=== PATIENT | female | born 1975 | race Caucasian/White ===

== ENCOUNTER 2024-01-28 15:05 | Emergency (ER) | payer SELFPAY ==
[2024-01-28] VITALS (32 sets, daily range): BP systolic 97–140; BP diastolic 54–85; PULSE 105–120; RESP 17–27; TEMP 35–37; O2SAT 94–100; BMI 23.4
--- NOTE | 2024-01-28 15:08 | ECG_ITS ---
APPROVED REPORT Exam: Resting ECG HR:102 bpm ECG Measurements Heart Rate 102 AXES SD 145 P 47 QRSd 82 QRS 60 QT 369 T 42 QTc 428 Conclusion Sinus tachycardia Septal Q waves, likely old ischemia Electronically signed by : MICHAEL CALZADA, 01/28/2024 21:17:35
[2024-01-28] MEDS: ETOMIDATE 40MG/20ML VIAL 20 MG IV (15:13)
[2024-01-28] MEDS: ROCURONIUM BROMIDE 50MG/5ML VIAL 60 MG IV (15:14)
--- NOTE | 2024-01-28 15:16 | PC.NURSE ---
ER MD placed 7.5 ET tube via glidescope, 19 at the teeth, positive co2 color change, auscultated breath sounds and post placement xray see ER MD and RT notes for further info, see MAR for meds given and sedation
--- NOTE | 2024-01-28 15:19 | CT_ITS ---
FINAL REPORT TECHNIQUE: Thin-section axial CT with IV contrast supplemented with multi planar reconstruction under CT angiogram protocol was performed of the neck. This study was performed technique to keep radiation doses as low as reasonably achievable, (ALARA). NASCET criteria was utilized during interpretation. CLINICAL HISTORY: AMS, found down deviation to Right, intubated COMPARISON: None FINDINGS: Note is made of your tube and an NG tube, as well as fluid in the oropharynx and hypopharynx. Aortic arch: Arch shows no significant narrowing. Great vessel origins are widely patent. Right carotid: No significant stenosis is seen at the cervical common or internal carotid artery. Left carotid: No significant stenosis is seen at the cervical common or internal carotid artery. Vertebrals: Left vertebral artery is dominant. No significant stenosis is present. IMPRESSION: No evidence of significant stenosis or major branch occlusion. Reviewed, Interpreted and Dictated by Arron Mcdonnell III, MD Transcribed by Esha Herrera Authenticated and . [facility]
--- NOTE | 2024-01-28 15:19 | CT_ITS ---
FINAL REPORT CLINICAL HISTORY: AMS, found down deviation to Right, intubated COMPARISON: None FINDINGS: Axial CT images of the cervical spine were obtained without contrast. Sagittal and coronal reformatted images were also obtained. This study was performed with techniques to keep radiation doses as low as reasonably achievable (ALARA). Individualized dose reduction techniques using automated exposure control or adjustment of mA and/or kV according to the patient's size were employed. There is no evidence of fracture or dislocation. The bony alignment is normal. Mild degenerative change with osteophytes at the C5-6 level, as well as moderate neuroforaminal narrowing at the C5-6 level are noted. There is no evidence of canal stenosis. There is rotation at the C1-2 level secondary to rotation of the patient. There is fluid in the oropharynx and hypopharynx as well as an endotracheal tube and NG tube present. Limited images of the upper thorax are unremarkable. IMPRESSION: No fracture or acute bony abnormality identified. Reviewed, Interpreted and Dictated by Arron Mcdonnell III, MD Transcribed by Esha Herrera Authenticated and [facility]
--- NOTE | 2024-01-28 15:19 | CT_ITS ---
FINAL REPORT CLINICAL HISTORY: AMS, found down deviation to Right, intubated COMPARISON: None FINDINGS: Thin section axial CT images of the chest were obtained with contrast. 3D reformatted images were also obtained. This study was performed with techniques to keep radiation doses as low as reasonably achievable (ALARA). Individualized dose reduction techniques using automated exposure control or adjustment of mA and/or kV according to the patient's size were employed. ET tube and NG tube are noted. There is no evidence of pulmonary embolism. There is no evidence of thoracic aortic aneurysm or dissection. There is no evidence of mediastinal or hilar mass or adenopathy. Bilateral lower lobe atelectasis is present. No pleural effusions are identified. No localized inflammatory process is seen within the lungs. IMPRESSION: No evidence of pulmonary embolism dissection, or aneurysm. Bilateral lower lobe atelectasis is present. Reviewed, Interpreted and Dictated by Arron Mcdonnell III, MD Transcribed by Esha Herrera Authenticated and [facility]
--- NOTE | 2024-01-28 15:19 | CT_ITS ---
FINAL REPORT TECHNIQUE: Thin section axial CT with IV contrast supplemented with multiplanar reconstruction under CT angiogram protocol. 3-D reconstructions were performed. This study was performed with techniques to keep radiation doses as low as reasonably achievable (ALARA). Individualized dose reduction techniques using automated exposure control or adjustment of mA and/or kV according to the patient's size were employed. CLINICAL HISTORY: AMS, found down deviation to Right, intubated COMPARISON: None FINDINGS: CTA HEAD: The distal vertebral, basilar and distal internal carotid arteries have an unremarkable appearance. No aneurysm is seen. Major intracranial vessels are patent without significant stenosis. Note is made of an ET tube and an NG tube, as well as fluid in the oropharynx and hypopharynx. IMPRESSION: No major intracranial vascular abnormality identified. Reviewed, Interpreted and Dictated by Arron Mcdonnell III, MD Transcribed by Esha Herrera Authenticated and [facility]
--- NOTE | 2024-01-28 15:19 | CT_ITS ---
FINAL REPORT CLINICAL HISTORY: fall, head trauma, deviation to Right, intubated COMPARISON: None none FINDINGS: Axial images of the head were obtained without contrast. Coronal and sagittal reformatted images were also obtained.This study was performed with techniques to keep radiation doses as low as reasonably achievable (ALARA). Individualized dose reduction techniques using automated exposure control or adjustment of mA and/or kV according to the patient's size were employed. There is no evidence of intracranial hemorrhage or mass. The ventricular size is within normal limits. There is no evidence of shift of the midline structures. No abnormal extra axial fluid collection is identified. No skull abnormality is seen on the bone window images. IMPRESSION: No acute intracranial abnormality. Reviewed, Interpreted and Dictated by Arron Mcdonnell III, MD Transcribed by Esha Herrera Authenticated and . [facility]
--- NOTE | 2024-01-28 15:20 | PC.NURSE ---
placed 16 fr OG tube for stomach decompression, placement confirmed by auscultation, gastric contents aspirated, and by post placement xray
--- NOTE | 2024-01-28 15:20 | XR_ITS ---
FINAL REPORT CLINICAL HISTORY: post intubation, OG tube FINDINGS: A single portable view of the chest was obtained. An endotracheal tube is in the mid thoracic trachea. The NG tube courses below the diaphragm. The heart size is normal. There is pulmonary vascular congestion. The mediastinum is within normal limits. No acute pulmonary abnormality is identified. The bony thorax is intact. IMPRESSION: ET tube in the mid thoracic trachea. NG tube below the diaphragm. Pulmonary vascular congestion. Reviewed, Interpreted and Dictated by Arron Mcdonnell III, MD Transcribed by Cony Montez Authenticated and [facility]
--- NOTE | 2024-01-28 15:20 | CT_ITS ---
FINAL REPORT TECHNIQUE: Pre-and postcontrast images of the abdomen and pelvis were performed by computed tomography. Extensive 3-D reconstruction images were performed. A CTA was performed. This study was performed with techniques to keep radiation doses as low as reasonably achievable (ALARA). Individualized dose reduction techniques using automated exposure control or adjustment of mA and/or kV according to the patient's size were employed. CLINICAL HISTORY: found down, eye deviation to R, abd distention, intubated FINDINGS: ABDOMEN AND PELVIS: Bibasilar atelectasis is present. The liver is small, with a lobular contour, consistent with cirrhosis. Splenomegaly is present, with the spleen measuring 13.6 cm and craniocaudal length. There is heterogeneous enhancement of the spleen with a small wedge and low-attenuation area posteriorly, infarct is not excluded. 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 Moderate anasarca is present. A large amount of ascites is noted. There is wall thickening of the small bowel and colon, consistent with portal hypertensive enterocolopathy. Probable uterine fibroids are noted. There are bilateral inguinal hernias containing ascites. CTA: The abdominal aorta is proper caliber. The SMA, celiac axis, and JERMAINE are patent. There is no significant stenosis or calcification. The renal arteries are patent bilaterally. Common iliac, external iliac and internal iliac arteries are patent without significant stenosis. IMPRESSION: The liver is small with lobular contour consistent with cirrhosis. Splenomegaly is present, with heterogeneous enhancement of the spleen and a region that may represent a posterior splenic infarct. 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 Wall thickening is present small bowel and colon, consistent with portal hypertensive enterocolopathy. Reviewed, Interpreted and Dictated by Arron Mcdonnell III, MD Transcribed by Esha Herrera Authenticated and . [facility]
[2024-01-28] MEDS: DEXTROSE 5%-LACTATED RINGERS 1,000 ML 9999 ML IV (15:28)
[2024-01-28 15:38] LABS: VBG Base Excess -3.3 mmol/L (-2.4-2.3); VBG HCO3 20.3 mmol/L (23-30); VBG Oxygen Saturation 98.2 % (50-70); VBG PCO2 28.2 mmol/L (35-51); VBG PH 7.48 mmol/L (7.31-7.41); VBG PO2 114.3 mmol/L (28-40); VBG Total CO2 21.2 mmol/L (23-27)
[2024-01-28 15:44] LABS: Microscopic, Urine URINE MICROSCOPIC (MICROSCOPIC)
[2024-01-28 15:51] LABS: Albumin Level 3.1 g/dl (3.5-5.0); Basophils % 1.7 % (0.1-2.0); Chloride 108 mmol/L (98-107); Eosinophils # 0.1 K/mm3 (0.0-0.4); Hematocrit 27.9 % (37.0-47.0); Hemoglobin 9.2 g/dL (12.2-16.2); Lymphocytes # 0.4 K/mm3 (0.7-4.5); Lymphocytes % 19.8 % (10-50); Mean Corpuscular Hemoglobin 29.8 pg (27.0-31.2); Mean Corpuscular Volume 90.4 fl (81-99); Monocytes # 0.2 K/mm3 (0.1-1.0); Monocytes % 9.5 % (1.7-9.3); Neutrophils # 1.3 K/mm3 (1.8-7.8); Platelet Count 101 K/mm3 (142-424); Red Blood Count 3.09 M/mm3 (4.20-5.40); Red Cell Distribution Width 20.4 % (11.5-17.5)
[2024-01-28 15:52] LABS: Potassium 3.6 mmoL/L (3.5-5.1); Sodium 130 mmol/L (136-145)
[2024-01-28 15:54] LABS: Alanine Aminotransferase 29 U/L (12-78); Anion Gap 5.6 mEq/L (5-15); Aspartate Amino Transferase 79 U/L (14-36); Blood Urea Nitrogen 22 mg/dl (7-17); Carbon Dioxide 20 mmol/L (22.0-30.0); Creatinine Clearance Estimated 58 mL/min (50-200); Estimated Glomerular Filt Rate 59 ml/min (>60); GFR (African American) 71 ML/MIN (>60); Lactic Acid 1.6 mmol/L (0.7-2.1)
[2024-01-28 15:55] LABS: Albumin/Globulin Ratio 1.4 (1.1-1.8); Alkaline Phosphatase 140 U/L (38-126); Bilirubin,Urine Negative (Negative); Blood, Urine TRACE-I (Negative); Calcium 7.9 mg/dl (8.4-10.2); Color,Urine YELLOW (Yellow); Globulin 2.2 g/dL (1.3-3.2); Glucose 67 mg/dl (74-100); Glucose,Urine (UA) Negative (Negative); Ketones,Urine Negative (Negative); Leukocyte Esterase,Urine Negative (Negative); Nitrate,Urine Negative (Negative); Protein,Urine Negative (Negative); Total Protein,Serum 5.3 g/dl (6.3-8.2); Urobilinogen,Urine 0.2 EU/dl (0.2)
[2024-01-28 15:57] LABS: Acetaminophen < 10 ug/ml (10-30); Salicylate < 1.0 mg/dL (2.0-20.0)
[2024-01-28] MEDS: SODIUM CHLORIDE 0.9% 10ML SYR (RAD ONLY) 10 ML IV (15:58)
[2024-01-28] MEDS: 0.9 % SODIUM CHLORIDE 50 ML VIAL 100 ML IV (15:58)
[2024-01-28] MEDS: IOPAMIDOL-370 (76%);100ML BOTTLE 160 ML IV (15:58)
[2024-01-28 16:01] LABS: INR 1.47 (0.9-1.1); Prothrombin Time 15.8 seconds (10.1-12.5)
[2024-01-28 16:02] LABS: Appearance,Urine Slightly Cloudy (Clear)
[2024-01-28 16:05] LABS: Activated Partial Thrombo Time 28.8 seconds (22.8-30.6)
[2024-01-28 16:06] LABS: Amphetamine/Metha Screen,Urine Positive ng/ml (<1000); Benzodiazepines Screen,Urine Negative ng/ml (<200)
--- NOTE | 2024-01-28 16:06 | HMH.EDGENADL ---
Discharge Plan Disposition Chief Complaint: Altered Mental Status Referrals Follow up/Referrals: Provider,Referral, MD [Primary Care Provider] - See instructions Clinical Impressions Clinical Impression: Acute metabolic encephalopathy, Hyperammonemia, Splenic infarct, Acute hypoxemic respiratory failure Stand Alone Forms Stand Alone Forms: Transfer Record - ED Instructions Patient Instructions: DI for Altered Mental Status Print Language Print Language: Mexican Discharge ED Provider: Clyde Johns [facility] Adult HPI General Chief complaint: Altered Mental Status Stated complaint: Unresponsive Time Seen by Provider: 01/28/24 15:11 History of Present Illness HPI narrative: Please note that above description of symptoms, in this electronic medical record under categorization of recalled from ER triage doctor by RN are reflective of an initial nursing assessment, however, is not reflective of my full history and physical exam that was personally taken and clarified. Consequentially, this preceding description of symptoms, which may include the patient's categorized chief complaint in the EMR, do not reflect my personal clinical impression, and the ultimate description of history of present illness and patient stated complaints should be deferred to this section of the note. Unless stated otherwise or congruent with this section of the note, additional signs, symptoms, or incongruence should be interpreted as inaccurate with my clinical impression. Related Data Allergies Allergy/AdvReac Type Severity Reaction Status Date / Time No Known Allergies Allergy Verified 01/28/24 15:19 [facility] Disclaimer: The information contained in this section may have been updated after the patient was seen, as this information can be updated by other users. Social History Smoking Status: Unknown if ever smoked alcohol intake: never current occupational status: other Travel in the last 8 weeks: None ROS Obtained: Yes unobtainable due to mental status Physical Exam General General appearance: obtunded Head Head exam: atraumatic and normocephalic Eye Eye exam: Present other (Bilateral pupils 3 mm and reactive. Eye deviation to the right, fixed. No nystagmus) ENT ENT exam: Present mucous membranes dry Neck Neck exam: Present normal inspection, full ROM and trachea midline Respiratory Respiratory exam: Present wheezes (Bilateral inspiratory wheezes inferior lung hussein. Tachypneic); Absent respiratory distress, stridor, accessory muscle use or prolonged expiratory phase Cardiovascular Cardiovascular exam: Present normal rhythm, tachycardia and other (Pulses equal symmetric in upper and lower extremities) Abdominal Exam Abdominal exam: Present soft and distention; Absent tenderness, guarding, rebound, rigidity or pulsatile mass Extremities Exam Extremities exam: Present edema (Nonpitting bilateral) Neurological Exam Neurological exam: Present other (GCS 6 (E1, V1, M4)) Skin Skin exam: Present warm, dry and other (Jaundiced); Absent diaphoresis or erythema Medical Decision Making Medical Records Medical records reviewed: Yes I reviewed the patient's medical records. Screening: Per USPSTF and CDC recommendations, given the prevalence of disease in our region, it is our hospital?s policy to screen for HIV and viral Hepatitis for all patients aged 18 and over and those with ongoing risk factors. Herbert Inquiry Pt receiving controlled substance: No Herbert was queried for this patient: No Vital Signs: 01/28/24 15:06 01/28/24 16:06 01/28/24 16:10 Temperature 95.2 F L Temperature Source Core Pulse Rate 105 H Pulse Rate [Left Radial] 113 H Respiratory Rate 17 18 19 Blood Pressure 135/83 Blood Pressure [Right Arm] 125/74 Blood Pressure Mean [Right Arm] 91 02 Sat by Pulse Oximetry 100 100 Oxygen Delivery Method Nasal Cannula Mechanical Ventilation Oxygen Flow Rate (LPM) 4 01/28/24 16:23 01/28/24 16:25 01/28/24 16:30 Temperature 95.2 F L 95.2 F L 95.0 F L Temperature Source Pulse Rate 110 H 111 H 111 H Pulse Rate [Left Radial] Respiratory Rate 18 19 20 Blood Pressure 136/78 140/83 133/84 Blood Pressure [Right Arm] Blood Pressure Mean [Right Arm] 02 Sat by Pulse Oximetry 97 97 97 Oxygen Delivery Method Mechanical Ventilation Mechanical Ventilation Mechanical Ventilation Oxygen Flow Rate (LPM) 01/28/24 16:35 01/28/24 16:40 01/28/24 16:45 Temperature 95.0 F L 95.0 F L 95.0 F L Temperature Source Pulse Rate Pulse Rate [Left Radial] Respiratory Rate 18 21 21 Blood Pressure 136/85 134/81 137/84 Blood Pressure [Right Arm] Blood Pressure Mean [Right Arm] 02 Sat by Pulse Oximetry Oxygen Delivery Method Mechanical Ventilation Mechanical Ventilation Oxygen Flow Rate (LPM) 01/28/24 16:50 01/28/24 16:55 01/28/24 17:00 Temperature 95.2 F L Temperature Source Pulse Rate 115 H 115 H Pulse Rate [Left Radial] Respiratory Rate 21 22 21 Blood Pressure 133/84 134/84 133/84 Blood Pressure [Right Arm] Blood Pressure Mean [Right Arm] 02 Sat by Pulse Oximetry 95 95 Oxygen Delivery Method Mechanical Ventilation Mechanical Ventilation Mechanical Ventilation Oxygen Flow Rate (LPM) 01/28/24 17:05 01/28/24 17:10 01/28/24 17:15 Temperature Temperature Source Pulse Rate 114 H 115 H 116 H Pulse Rate [Left Radial] Respiratory Rate 20 20 21 Blood Pressure 130/81 131/81 136/80 Blood Pressure [Right Arm] Blood Pressure Mean [Right Arm] 02 Sat by Pulse Oximetry 95 95 94 L Oxygen Delivery Method Mechanical Ventilation Mechanical Ventilation Mechanical Ventilation Oxygen Flow Rate (LPM) 01/28/24 17:20 01/28/24 17:25 01/28/24 17:30 Temperature Temperature Source Pulse Rate 116 H 118 H 118 H Pulse Rate [Left Radial] Respiratory Rate 22 27 H 22 Blood Pressure 126/78 133/81 129/80 Blood Pressure [Right Arm] Blood Pressure Mean [Right Arm] 02 Sat by Pulse Oximetry 94 L 94 L 94 L Oxygen Delivery Method Mechanical Ventilation Oxygen Flow Rate (LPM) 01/28/24 17:35 01/28/24 17:40 01/28/24 17:45 Temperature Temperature Source Pulse Rate 117 H 117 H 117 H Pulse Rate [Left Radial] Respiratory Rate 21 21 22 Blood Pressure 126/78 122/78 133/77 Blood Pressure [Right Arm] Blood Pressure Mean [Right Arm] 02 Sat by Pulse Oximetry 94 L 95 95 Oxygen Delivery Method Mechanical Ventilation Mechanical Ventilation Mechanical Ventilation Oxygen Flow Rate (LPM) 01/28/24 17:50 01/28/24 17:55 01/28/24 18:00 Temperature Temperature Source Pulse Rate 117 H 119 H 118 H Pulse Rate [Left Radial] Respiratory Rate 23 24 21 Blood Pressure 132/75 120/71 121/74 Blood Pressure [Right Arm] Blood Pressure Mean [Right Arm] 02 Sat by Pulse Oximetry 95 94 L 96 Oxygen Delivery Method Mechanical Ventilation Mechanical Ventilation Mechanical Ventilation Oxygen Flow Rate (LPM) 01/28/24 18:05 01/28/24 18:10 01/28/24 18:15 Temperature Temperature Source Pulse Rate 115 H 113 H 112 H Pulse Rate [Left Radial] Respiratory Rate 20 20 20 Blood Pressure 117/74 124/74 122/70 Blood Pressure [Right Arm] Blood Pressure Mean [Right Arm] 02 Sat by Pulse Oximetry 96 97 97 Oxygen Delivery Method Mechanical Ventilation Mechanical Ventilation Mechanical Ventilation Oxygen Flow Rate (LPM) 01/28/24 18:20 01/28/24 18:25 01/28/24 18:39 Temperature Temperature Source Pulse Rate 112 H 113 H Pulse Rate [Left Radial] Respiratory Rate 17 19 20 Blood Pressure 120/67 123/73 Blood Pressure [Right Arm] Blood Pressure Mean [Right Arm] 02 Sat by Pulse Oximetry 97 97 98 Oxygen Delivery Method Mechanical Ventilation Mechanical Ventilation Oxygen Flow Rate (LPM) Lab Data Lab Results 01/28/24 15:33: WBC 2.0 L, RBC 3.09 L, Hgb 9.2 L, Hct 27.9 L, MCV 90.4, MCH 29.8, MCHC 33.0, RDW 20.4 H, Plt Count 101 L, MPV 8.0, Neut % (Auto) 66.0, Lymph % (Auto) 19.8, [place] % (Auto) 9.5 H, Eos % (Auto) 3.0, Baso % (Auto) 1.7, Neut # (Auto) 1.3 L, Lymph # (Auto) 0.4 L, [place] # (Auto) 0.2, Eos # (Auto) 0.1, Baso # (Auto) 0.0, PT 15.8 H, INR 1.47 H, APTT 28.8, Sodium 130 L, Potassium 3.6, Chloride 108 H, Carbon Dioxide 20 L, Anion Gap 5.6, BUN 22 H, Creatinine 1.00, Estimated Creat Clear 58, Estimated GFR 59, Est GFR ( Amer) 71, Glucose 67 L, Lactate 1.6, Calcium 7.9 L, Magnesium 0.7 L, Total Bilirubin 4.0 H, AST 79 H, ALT 29, Alkaline Phosphatase 140 H, Troponin I < 0.01, NT-Pro-B Natriuret Pep 31.8, Total Protein 5.3 L, Albumin 3.1 L, Globulin 2.2, Albumin/Globulin Ratio 1.4, TSH 2.13, Thyroxine (T4) 5.6, Urine Color Yellow, Urine Appearance Slightly cloudy, Urine pH 6.0, Ur Specific [place] 1.020, Urine Protein Negative, Urine Glucose (UA) Negative, Urine Ketones Negative, Urine Blood Trace-i, Urine Nitrate Negative, Urine Bilirubin Negative, Urine Urobilinogen 0.2, Ur Leukocyte Esterase Negative, Urine RBC None, Urine WBC Occasional, Ur Squamous Epith Cells Occasional, Urine Bacteria None, Salicylates < 1.0 L, Urine Opiates Screen Positive H, Urine Methadone Screen Negative, Acetaminophen < 10 L, Ur Barbituates Screen Negative, Ur Phencyclidine Scrn Negative, Ur Amphetamines Screen Positive H, U Benzodiazepines Scrn Negative, Urine Cocaine Screen Negative, U Marijuana (THC) Screen Negative, Plasma/Serum Alcohol < 10 01/28/24 15:41: VBG pH 7.48 H, VBG pCO2 28.2 L, VBG pO2 114.3 H, VBG HCO3 20.3 L, VBG Total CO2 21.2 L, VBG O2 Saturation 98.2 H, VBG Base Excess -3.3 L, VBG Lactic Acid 2.2 H 01/28/24 16:48: Specimen Source Right radial, O2 % 40, ABG pH 7.32 L, ABG pCO2 37.5, ABG pO2 71.6 L, ABG HCO3 18.7 L, ABG Total CO2 19.9 L, ABG O2 Saturation 91, ABG Base Excess -7.4 L, Danny Test Non applicable, Vent Rate 18, Tidal Volume 400, PEEP 5 01/28/24 17:55: Fluid Source Paracentesis fluid, Fluid Volume 7.5, Fluid Appearance Normal, Fluid RBC (Auto) < 10, Fld Tot Nucleated Cell 35, Fld Polynuclear WBCs % 70, Fld Mononuclear WBCs % 30 01/28/24 18:32: Troponin I < 0.01 01/28/24 18:36: Ammonia 96 H 01/28/24 20:31: Lactate 2.0 01/28/24 15:33 01/28/24 15:33 Orders (Tests/Meds): ED MEDICATIONS Generic Name Dose Route Start Last Admin Trade Name Freq PRN Reason Stop Dose Admin Calcium Gluconate 1,000 mg 01/28/24 16:39 Calcium Gluconate 1gm/10ml (10%) Vial IVP 02/27/24 16:38 ONCE PRN Mag toxicity Propofol 100 mls @ 1.633 mls/hr 01/28/24 15:30 01/28/24 19:55 Diprivan 10mg/Ml 100ml Bottle IV 02/27/24 15:29 30 mcg/kg/min .Q24H ANIBAL 9.8 mls/hr Titration Protocol 5 MCG/KG/MIN Dextrose/Lactated Ringer's 1,000 mls @ 75 mls/hr 01/28/24 17:00 01/28/24 17:17 Dextrose 5% In Lactated Ringer's 1000ml IV 02/27/24 16:59 75 mls/hr .[id number] ANIBAL Administration Norepinephrine/Dextrose 8 mg in 250 mls @ 3.75 mls/hr 01/28/24 20:05 01/28/24 20:08 Norepinephrine 8mg/250ml-D5w Premix IV 02/27/24 20:04 2 mcg/min .Q24H ANIBAL 3.75 mls/hr Administration Protocol 2 MCG/MIN Miscellaneous 1 each 01/28/24 15:30 01/28/24 16:24 Vancomycin Consult Request NOTAPPLIC 02/27/24 15:29 1 each CONSULT PHARMACY ANIBAL Administration Sodium Chloride 10 ml 01/28/24 15:54 01/28/24 15:58 Sodium Chloride 0.9% 10ml Syr (Rad Only) IV 02/27/24 15:53 10 ml NEEDED PRN Administration Maintain IV Site Sodium Chloride 3 ml 01/28/24 16:14 Sodium Chloride 3% 15ml Neb IH 02/27/24 16:13 ONCE PRN INDUCE SPUTUM COLLECTION Discontinued Medications Generic Name Dose Route Start Last Admin Trade Name Freq PRN Reason Stop Dose Admin Droperidol 5 mg 01/28/24 19:26 01/28/24 19:30 Droperidol 5mg/2ml Vial IV 01/28/24 19:27 5 mg ONCE ONE Administration Etomidate 20 mg 01/28/24 15:22 01/28/24 15:13 Etomidate 40mg/20ml Vial IV 01/28/24 15:23 20 mg ONCE ONE Administration Cefepime HCl 2 gm/ Sodium 100 mls @ 200 mls/hr 01/28/24 15:18 01/28/24 17:02 Chloride IV 01/28/24 15:47 200 mls/hr ONCE ONE Administration Propofol 100 mls @ 3.266 mls/hr 01/28/24 15:23 01/28/24 16:54 Diprivan 10mg/Ml 100ml Bottle IV 02/27/24 15:22 Not Given .Q24H ANIBAL Protocol 10 MCG/KG/MIN Vancomycin HCl 1,000 mg/ 250 mls @ 125 mls/hr 01/28/24 15:30 01/28/24 17:14 Sodium Chloride IV 01/28/24 17:29 125 mls/hr ONCE ONE Administration Dextrose/Lactated Ringer's 1,000 mls @ 9,999 mls/hr 01/28/24 15:30 01/28/24 15:28 Dextrose 5% In Lactated Ringer's 1000ml IV 02/27/24 15:29 9,999 mls/hr .Q6M ANIBAL Administration Magnesium Sulfate 4 gm in 50 mls @ 150 mls/hr 01/28/24 16:40 01/28/24 17:32 Magnesium Sulfate 4gm/50ml Premix IV 01/28/24 16:59 150 mls/hr ONCE ONE Administration Iopamidol 160 ml 01/28/24 15:54 01/28/24 15:58 Iopamidol-370 (76%);100ml Bottle IV 01/28/24 15:55 160 ml ONCE ONE Administration Rocuronium [place] 60 mg 01/28/24 15:18 01/28/24 15:14 Rocuronium [place] 50mg/5ml Vial IV 01/28/24 15:19 60 mg ONCE ONE Administration Sodium Chloride 100 ml 01/28/24 15:54 01/28/24 15:58 0.9 % Sodium Chloride 50 Ml Vial IV 01/28/24 15:55 100 ml ONCE ONE Administration ORDERS Category Date Time Status CT angio abdomen pelvis Stat Cat Scan 01/28/24 15:[address] angio head Stat Cat Scan 01/28/24 15:[address] angio neck Stat Cat Scan 01/28/24 15:[address] cervical spine wo con Stat Cat Scan 01/28/24 15:[address] head/brain wo con Stat Cat Scan 01/28/24 15:19 Completed CTA Chest [CT angio chest - dissection] Stat Cat Scan 01/28/24 15:19 Completed Consult Thread Dresser [CONS] Routine Cons 01/28/24 18:15 Active CXR --portable [XR chest portable] Stat Exams 01/28/24 20:04 Taken POCUS Point of Care (ER Only) Stat Exams 01/28/24 17:27 Completed XR chest portable Stat Exams 01/28/24 15:20 Completed Acetaminophen Stat Lab 01/28/24 15:33 Completed Ammonia Stat Lab 01/28/24 18:36 Completed Body Fluid: Cell Count w/ Diff Stat Lab 01/28/24 17:55 Completed Complete Blood Count Auto Diff Stat Lab 01/28/24 15:33 Completed Comprehensive Metabolic Panel Stat Lab 01/28/24 15:33 Completed Drug Screen,Urine Stat Lab 01/28/24 15:33 Completed Ethanol [Ethyl Alcohol] Stat Lab 01/28/24 15:33 Completed Hemoglobin A1C Stat Lab 01/28/24 15:33 Received Lactic Acid Follow Up (RFLX 1) Stat Lab 01/28/24 20:31 Completed Lactic Acid Stat Lab 01/28/24 15:33 Completed Magnesium Stat Lab 01/28/24 15:33 Completed NT Pro Brain Natriuretic Pep. Stat Lab 01/28/24 15:33 Completed PT INR [Prothrombin Time INR] Stat Lab 01/28/24 15:33 Completed PTT [Activated Partial Thrombo Time] Stat Lab 01/28/24 15:33 Completed Salicylate Stat Lab 01/28/24 15:33 Completed T4 (Thyroxine) Stat Lab 01/28/24 15:33 Completed TSH [Thyroid Stimulating Hormone] Stat Lab 01/28/24 15:33 Completed Troponin I Q3H Lab 01/28/24 18:32 Completed Troponin I Q3H Lab 01/28/24 21:30 Ordered Troponin I Stat Lab 01/28/24 15:33 Completed Urinalysis and Microscopic Stat Lab 01/28/24 15:33 Completed Blood Culture Stat Micro 01/28/24 16:34 Received Body Fluid Cult & Gram Stain Stat Micro 01/28/24 17:55 Results Sputum Culture & Gram Stain Stat Micro 01/28/24 16:10 Results ABG [Arterial Blood Gas] Stat RT 01/28/24 16:48 Completed Insert, Endotracheal Tube Stat RT 01/28/24 16:26 Ordered Venous Blood Gas Stat RT 01/28/24 15:41 Completed Medical Decision Narrative: 48-year-old female unknown medical history other than cirrhosis presenting with altered mental status. Per report, EMS was called by son who checked on patient today. She last night normal on 01/26, did not wake up today. Son went to check on her today, 01/27, found her unresponsive in the floor. EMS called. On arrival, glucose in the 70s, largely unresponsive. Fluid bolus started and brought to the emergency department. On arrival, patient GCS of 6, rightward eye deviation, jaundiced, dry mucous membranes. No evidence of trauma. Cardiac exam without murmurs gallops or rubs, but she is tachycardic. She has nonpitting lower extremity edema bilaterally. Abdomen is soft, distended, does not appear to be tender, but patient also obtunded and largely altered. Lungs with inspiratory wheezes bilaterally inferior lung hussein. Because patient not protecting airway, head of bed was elevated, patient placed on monitorAnd continuous pulse ox. Initial set of vitals 125/74, heart rate 113, O2 sat 100% on 4 L nasal cannula.. EKG independently interpreted and sinus tachycardia 102 bpm with NJ 145, QRS 82, QTc 428. Normal axis. No acute ischemic change. Liter of fluids was started, patient's glucose drawn and in the 70s. Patient was given 20 of etomidate IV, 60 of rocuronium IV and intubated with 7.5 ET tube to 21 cm at the teeth. Confirmed with x-ray above the ethan with no pneumothorax. OG also in place. Propofol drip started. Bedside [id number] ultrasound was performed, patient has large volume ascites. Diagnostic paracentesis was performed and labs were sent. Patient was empirically started on cefepime and vancomycin. Full sepsis bolus was administered. Independent interpretation of workup demonstrates pancytopenia with white count 2.0, hemoglobin 9.2, platelets 101. Patient's coags significant for INR of 1.47. Initial VBG pH 7.48/CO2 28/O2 115/bicarb 20 with lactic 2.2. Chemistry with mild hyponatremia 130, normal kidney function with creatinine 1, BUN 22. Patient's calcium low at 7.9, replaced with 2 g calcium gluconate IV. Magnesium considerably low 0.7, this was repleted 4 g IV. LFTs with total bili 4.0, AST 79, ALT 29, alkaline phosphatase 148. Ammonia elevated at 96. Lactulose administered via OG. Thyroid studies unremarkable. Patient's urinalysis without concern for UTI. Urine toxicology positive for opiates and methamphetamines, salicylates/ethanol/acetaminophen negative. Paracentesis fluid with normal gross appearance. No RBCs, total nucleated cells 35, no concern for SBP. Imaging with no intracranial hemorrhage, no evidence of CVA on CT head neck or CT head without contrast. CT angiogram of the chest without PE or dissection. She appears to have bilateral aspiration pneumonias. CT angiogram of the abdomen with ascites, what appears to be portal hypertension and hypertensive enteral colopathy. Radiology read returned with concern for potential splenic infarct posteriorly. Patient continuing to have intermittent difficulty tolerating ventilator, so 5 mg droperidol administered. Because of CT findings, [facility] was contacted and case was discussed with Dr. Vidal. Because of the association with an concern for portal venous thrombosis in the setting of new splenic infarct, necessitating triple phase CT scan of the abdomen and further workup. We do not have the capability to do this here at [facility], so recommended transfer to for ICU. Shortly after phone call with [facility], patient became hypotensive with systolics in the mid 80s, diastolics in the 40s. Propofol was slowed, however patient continued to be hypotensive with mean arterial pressures in the 50s. Norepinephrine drip was ordered, but systolic maintaining over 100, MAP in the 70s shortly thereafter. Never needed to initiate. Ventilator settings have not changed, peak and plateau pressures are normal, out of abundance of caution, repeat chest x-ray was ordered, and on independent interpretation this demonstrated no acute abnormality. Because patient high risk for clinical decompensation if discharged, deemed appropriate for transfer and inpatient admission. Results were relayed to patient who voiced understanding and patient was agreeable to transfer, inpatient admission, and management. Patient was graciously accepted and transferred to [facility] for further definitive management, under Dr. Vidal. [employer] disclaimer Much of this encounter note is an electronic hall manager spoken language to printed text. Electronic hall manager of the spoken language may permit errors. Although I have reviewed the note, some errors may still exist. Critical Care Critical Care Time Critical Care Time: Yes (metabolic, neuro) Attestation: On 01/28/24, the high probability of a clinically significant, sudden or life threatening deterioration of the following system(s) required my full and direct attention, intervention and personal management. The time I documented below is in addition to time spent performing reported procedures but includes the following listed in this critical care notation. Total Time Total Critical Care Time: 120
[2024-01-28 16:07] LABS: Barbiturates Screen,Urine Negative ng/ml (<200); Cannabinoid Screen,Urine Negative ng/ml (<50)
[2024-01-28 16:08] LABS: Troponin I < 0.01 ng/ml (0.00-0.034)
[2024-01-28 16:09] LABS: Methadone Screen,Urine Negative ng/ml (<300)
[2024-01-28 16:10] LABS: Phencyclidine Screen,Urine Negative ng/ml (<25)
[2024-01-28 16:11] LABS: Opiate Screen,Urine Positive ng/ml (<300); T4 (Thyroxine) 5.6 ug/dl (5.53-11.0)
[2024-01-28 16:13] LABS: Cocaine Screen,Urine Negative ng/ml (<300)
[2024-01-28 16:15] LABS: Lactate Venous 2.2 mmol/L (0.4-2.0)
[2024-01-28] MEDS: propofoL 100 ML 1.63 MG IV (16:22)
[2024-01-28] MEDS: VANCOMYCIN CONSULT REQUEST 1 EACH NOTAPPLIC (16:24)
[2024-01-28 16:25] LABS: Ethyl Alcohol < 10 mg/dl (0-10); Thyroid Stimulating Hormone 2.13 uIU/mL (0.465-4.68)
[2024-01-28 16:35] LABS: NT Pro Brain Natriuretic Pep. 31.8 pg/mL (0-125)
[2024-01-28 16:37] LABS: Magnesium 0.7 mg/dl (1.6-2.3)
[2024-01-28 16:49] LABS: ABG Base Excess -7.4 mmol/L (-2.4-2.3); ABG HCO3 18.7 mmhg (22.0-26.0); ABG Oxygen Saturation 91 % (90-100); ABG PCO2 37.5 mmhg (35.0-45.0); ABG PH 7.32 mmol/L (7.35-7.45); ABG PO2 71.6 mmhg (80-100); ABG TCO2 19.9 mmhg (23-27); Oxygen 40 %; Tidal Volume 400; Vent Rate 18
[2024-01-28 16:50] LABS: Allen's Test Non Applicable; PEEP 5; Source Right Radial
[2024-01-28] MEDS: CEFEPIME HCL 2 GM in 0.9 % SODIUM CHLORIDE 100 ML IV (17:02)
[2024-01-28] MEDS: VANCOMYCIN HCL 1,000 MG in 0.9 % SODIUM CHLORIDE 250 ML 125 MG IV (17:14)
[2024-01-28] MEDS: DEXTROSE 5%-LACTATED RINGERS 1,000 ML 75 ML IV (17:17)
[2024-01-28 17:18] LABS: Squamous Epithelial Cell,Urine Occasional #/hpf (0-5); WBC,Urine Occasional #/hpf (0-3)
[2024-01-28] MEDS: MAGNESIUM SULFATE IN WATER 4 GM/50 ML PIGGYBACK IV (17:32)
[2024-01-28 18:26] LABS: Appearance,Body Fld. Normal; Source, Body Fld. Paracentesis Fluid
[2024-01-28 18:28] LABS: RBC,Body Fluid < 10 cells/uL (< 10 X 10^3); TNC,Body Fluid 35 cells/uL (< 1000); Volume,Body Fld. 7.5 mL
--- NOTE | 2024-01-28 18:42 | PC.NURSE ---
calling [facility] at this time.
[2024-01-28 18:52] LABS: Ammonia 96 umol/L (9-30)
[2024-01-28 19:09] LABS: Troponin I < 0.01 ng/ml (0.00-0.034)
[2024-01-28] MEDS: droPERidol 5MG/2ML VIAL 5 MG IV (19:30)
[2024-01-28 19:52] LABS: Mononuclear WBCs,Body Fluid 30 %; Polynuclear WBC,Body Fluid 70 %
--- NOTE | 2024-01-28 20:04 | XR_ITS ---
PROCEDURE INFORMATION: Exam: XR Chest Exam date and time: 01/28/2024 8:08 PM Age: 48 years old Clinical indication: Other: Acute, new hypotension TECHNIQUE: Imaging protocol: Radiologic exam of the chest. Views: 1 view. COMPARISON: CT ANGIO CHEST 01/28/2024 3:51 PM FINDINGS: Tubes, catheters and devices: Endotracheal tube in good position above the ethan NG tube is seen with its tip extending below the inferior confines of the film. Lungs: Low lung volumes. Left lower lobe retrocardiac opacity could reflect atelectasis or pneumonia. Pleural spaces: Unremarkable. No pleural effusion. No pneumothorax. Heart/Mediastinum: Unremarkable. No cardiomegaly. Bones/joints: Unremarkable. IMPRESSION: Left lower lobe retrocardiac opacity could reflect atelectasis or pneumonia.
[2024-01-28] MEDS: NOREPINEPHRINE BITARTRATE/D5W 8 MG/250 ML PLAST..BAG 3.75 MG IV (20:08)
[2024-01-28 20:16] LABS: Reflex Lactic Add Lactic Reflex
--- NOTE | 2024-01-28 20:36 | PC.NURSE ---
Report called to ESVIN Schaffer at [facility]
--- NOTE | 2024-01-28 20:41 | PC.NURSE ---
Ky2 and Ky11 declined for weather. Pt will go by ground.
--- NOTE | 2024-01-28 20:56 | ED_ITS ---
Discharge Plan Disposition Chief Complaint: Altered Mental Status Referrals Follow up/Referrals: Provider,Referral, MD [Primary Care Provider] - See instructions Clinical Impressions Clinical Impression: Acute metabolic encephalopathy, Hyperammonemia, Splenic infarct, Acute hypoxemic respiratory failure Stand Alone Forms Stand Alone Forms: Transfer Record - ED Instructions Patient Instructions: DI for Altered Mental Status Print Language Print Language: Jamaican Discharge ED Provider: Clyde Johns General Adult HPI General Chief complaint: Altered Mental Status Stated complaint: Unresponsive Time Seen by Provider: 01/28/24 15:11 Mode of Arrival: EMS Source of Information: EMS Limitations: No Limitations Description of Symptoms (Recalled from ER Triage Doc. by RN): Per ems pt son called 911 bc she went to sleep at 2100 yesterday and has not woke up, pt is yellow and distended abd upon triage, with non verbal. ems palced 2 ivs and fbs was 70 Related Data Allergies Allergy/AdvReac Type Severity Reaction Status Date / Time No Known Allergies Allergy Verified 01/28/24 15:19 [facility] Disclaimer: The information contained in this section may have been updated after the patient was seen, as this information can be updated by other users. Social History (Updated 01/28/24 @ 20:56 by Clyde Johns MD) Smoking Status: Unknown if ever smoked alcohol intake: never current occupational status: other Travel in the last 8 weeks: None Physical Exam General General appearance: obtunded Medical Decision Making Medical Records Screening: Per USPSTF and CDC recommendations, given the prevalence of disease in our region, it is our hospital?s policy to screen for HIV and viral Hepatitis for all patients aged 18 and over and those with ongoing risk factors. Vital Signs: 01/28/24 15:06 01/28/24 16:06 01/28/24 16:10 Temperature 95.2 F L Temperature Source Core Pulse Rate 105 H Pulse Rate [Left Radial] 113 H Respiratory Rate 17 18 19 Blood Pressure 135/83 Blood Pressure [Right Arm] 125/74 Blood Pressure Mean [Right Arm] 91 02 Sat by Pulse Oximetry 100 100 Oxygen Delivery Method Nasal Cannula Mechanical Ventilation Oxygen Flow Rate (LPM) 4 01/28/24 16:23 01/28/24 16:25 01/28/24 16:30 Temperature 95.2 F L 95.2 F L 95.0 F L Temperature Source Pulse Rate 110 H 111 H 111 H Pulse Rate [Left Radial] Respiratory Rate 18 19 20 Blood Pressure 136/78 140/83 133/84 Blood Pressure [Right Arm] Blood Pressure Mean [Right Arm] 02 Sat by Pulse Oximetry 97 97 97 Oxygen Delivery Method Mechanical Ventilation Mechanical Ventilation Mechanical Ventilation Oxygen Flow Rate (LPM) 01/28/24 16:35 01/28/24 16:40 01/28/24 16:45 Temperature 95.0 F L 95.0 F L 95.0 F L Temperature Source Pulse Rate Pulse Rate [Left Radial] Respiratory Rate 18 21 21 Blood Pressure 136/85 134/81 137/84 Blood Pressure [Right Arm] Blood Pressure Mean [Right Arm] 02 Sat by Pulse Oximetry Oxygen Delivery Method Mechanical Ventilation Mechanical Ventilation Oxygen Flow Rate (LPM) 01/28/24 16:50 01/28/24 16:55 01/28/24 17:00 Temperature 95.2 F L Temperature Source Pulse Rate 115 H 115 H Pulse Rate [Left Radial] Respiratory Rate 21 22 21 Blood Pressure 133/84 134/84 133/84 Blood Pressure [Right Arm] Blood Pressure Mean [Right Arm] 02 Sat by Pulse Oximetry 95 95 Oxygen Delivery Method Mechanical Ventilation Mechanical Ventilation Mechanical Ventilation Oxygen Flow Rate (LPM) 01/28/24 17:05 01/28/24 17:10 01/28/24 17:15 Temperature Temperature Source Pulse Rate 114 H 115 H 116 H Pulse Rate [Left Radial] Respiratory Rate 20 20 21 Blood Pressure 130/81 131/81 136/80 Blood Pressure [Right Arm] Blood Pressure Mean [Right Arm] 02 Sat by Pulse Oximetry 95 95 94 L Oxygen Delivery Method Mechanical Ventilation Mechanical Ventilation Mechanical Ventilation Oxygen Flow Rate (LPM) 01/28/24 17:20 01/28/24 17:25 01/28/24 17:30 Temperature Temperature Source Pulse Rate 116 H 118 H 118 H Pulse Rate [Left Radial] Respiratory Rate 22 27 H 22 Blood Pressure 126/78 133/81 129/80 Blood Pressure [Right Arm] Blood Pressure Mean [Right Arm] 02 Sat by Pulse Oximetry 94 L 94 L 94 L Oxygen Delivery Method Mechanical Ventilation Oxygen Flow Rate (LPM) 01/28/24 17:35 01/28/24 17:40 01/28/24 17:45 Temperature Temperature Source Pulse Rate 117 H 117 H 117 H Pulse Rate [Left Radial] Respiratory Rate 21 21 22 Blood Pressure 126/78 122/78 133/77 Blood Pressure [Right Arm] Blood Pressure Mean [Right Arm] 02 Sat by Pulse Oximetry 94 L 95 95 Oxygen Delivery Method Mechanical Ventilation Mechanical Ventilation Mechanical Ventilation Oxygen Flow Rate (LPM) 01/28/24 17:50 01/28/24 17:55 01/28/24 18:00 Temperature Temperature Source Pulse Rate 117 H 119 H 118 H Pulse Rate [Left Radial] Respiratory Rate 23 24 21 Blood Pressure 132/75 120/71 121/74 Blood Pressure [Right Arm] Blood Pressure Mean [Right Arm] 02 Sat by Pulse Oximetry 95 94 L 96 Oxygen Delivery Method Mechanical Ventilation Mechanical Ventilation Mechanical Ventilation Oxygen Flow Rate (LPM) 01/28/24 18:05 01/28/24 18:10 01/28/24 18:15 Temperature Temperature Source Pulse Rate 115 H 113 H 112 H Pulse Rate [Left Radial] Respiratory Rate 20 20 20 Blood Pressure 117/74 124/74 122/70 Blood Pressure [Right Arm] Blood Pressure Mean [Right Arm] 02 Sat by Pulse Oximetry 96 97 97 Oxygen Delivery Method Mechanical Ventilation Mechanical Ventilation Mechanical Ventilation Oxygen Flow Rate (LPM) 01/28/24 18:20 01/28/24 18:25 01/28/24 18:39 Temperature Temperature Source Pulse Rate 112 H 113 H Pulse Rate [Left Radial] Respiratory Rate 17 19 20 Blood Pressure 120/67 123/73 Blood Pressure [Right Arm] Blood Pressure Mean [Right Arm] 02 Sat by Pulse Oximetry 97 97 98 Oxygen Delivery Method Mechanical Ventilation Mechanical Ventilation Oxygen Flow Rate (LPM) Lab Data Lab Results 01/28/24 15:33: WBC 2.0 L, RBC 3.09 L, Hgb 9.2 L, Hct 27.9 L, MCV 90.4, MCH 29.8, MCHC 33.0, RDW 20.4 H, Plt Count 101 L, MPV 8.0, Neut % (Auto) 66.0, Lymph % (Auto) 19.8, [place] % (Auto) 9.5 H, Eos % (Auto) 3.0, Baso % (Auto) 1.7, Neut # (Auto) 1.3 L, Lymph # (Auto) 0.4 L, [place] # (Auto) 0.2, Eos # (Auto) 0.1, Baso # (Auto) 0.0, PT 15.8 H, INR 1.47 H, APTT 28.8, Sodium 130 L, Potassium 3.6, C hloride 108 H, Carbon Dioxide 20 L, Anion Gap 5.6, BUN 22 H, Creatinine 1.00, Estimated Creat Clear 58, Estimated GFR 59, Est GFR ( Amer) 71, Glucose 67 L, Lactate 1.6, Calcium 7.9 L, Magnesium 0.7 L, Total Bilirubin 4.0 H, AST 79 H, ALT 29, Alkaline Phosphatase 140 H, Troponin I < 0.01, NT-Pro-B Natriuret Pep 31.8, Total Protein 5.3 L, Albumin 3.1 L, Globulin 2.2, Albumin/Globulin Ratio 1.4, TSH 2.13, Thyroxine (T4) 5.6, Urine Color Yellow, Urine Appearance Slightly cloudy, Urine pH 6.0, Ur Specific [place] 1.020, Urine Protein Negative, Urine Glucose (UA) Negative, Urine Ketones Negative, Urine Blood Trace-i, Urine Nitrate Negative, Urine Bilirubin Negative, Urine Urobilinogen 0.2, Ur Leukocyte Esterase Negative, Urine RBC None, Urine WBC Occasional, Ur Squamous Epith Cells Occasional, Urine Bacteria None, Salicylates < 1.0 L, Urine Opiates Screen Positive H, Urine Methadone Screen Negative, Acetaminophen < 10 L, Ur Barbituates Screen Negative, Ur Phencyclidine Scrn Negative, Ur Amphetamines Screen Positive H, U Benzodiazepines Scrn Negative, Urine Cocaine Screen Negative, U Marijuana (THC) Screen Negative, Plasma/Serum Alcohol < 10 01/28/24 15:41: VBG pH 7.48 H, VBG pCO2 28.2 L, VBG pO2 114.3 H, VBG HCO3 20.3 L , VBG Total CO2 21.2 L, VBG O2 Saturation 98.2 H, VBG Base Excess -3.3 L, VBG Lactic Acid 2.2 H 01/28/24 16:48: Specimen Source Right radial, O2 % 40, ABG pH 7.32 L, ABG pCO2 37.5, ABG pO2 71.6 L, ABG HCO3 18.7 L, ABG Total CO2 19.9 L, ABG O2 Saturation 91, ABG Base Excess -7.4 L, Danny Test Non applicable, Vent Rate 18, Tidal Volume 400, PEEP 5 01/28/24 17:55: Fluid Source Paracentesis fluid, Fluid Volume 7.5, Fluid Appearance Normal, Fluid RBC (Auto) < 10, Fld Tot Nucleated Cell 35, Fld Polynuclear WBCs % 70, Fld Mononuclear WBCs % 30 01/28/24 18:32: Troponin I < 0.01 01/28/24 18:36: Ammonia 96 H 01/28/24 20:31: Lactate 2.0 01/28/24 15:33 01/28/24 15:33 Orders (Tests/Meds): ED MEDICATIONS Generic Name Dose Route Start Last Admin Trade Name Freq PRN Reason Stop Dose Admin Calcium Gluconate 1,000 mg 01/28/24 16:39 Calcium Gluconate 1gm/10ml (10%) Vial IVP 02/27/24 16:38 ONCE PRN Mag toxicity Propofol 100 mls @ 1.633 mls/hr 01/28/24 15:30 01/28/24 19:55 Diprivan 10mg/Ml 100ml Bottle IV 02/27/24 15:29 30 mcg/kg/min .Q24H ANIBAL 9.8 mls/hr Titration Protocol 5 MCG/KG/MIN Dextrose/Lactated Ringer's 1,000 mls @ 75 mls/hr 01/28/24 17:00 01/28/24 17:17 Dextrose 5% In Lactated Ringer's 1000ml IV 02/27/24 16:59 75 mls/hr .[id number] ANIBAL Administration Norepinephrine/Dextrose 8 mg in 250 mls @ 3.75 mls/hr 01/28/24 20:05 01/28/24 20:08 Norepinephrine 8mg/250ml-D5w Premix IV 02/27/24 20:04 2 mcg/min .Q24H ANIBAL 3.75 mls/hr Administration Protocol 2 MCG/MIN Miscellaneous 1 each 01/28/24 15:30 01/28/24 16:24 Vancomycin Consult Request NOTAPPLIC 02/27/24 15:29 1 each CONSULT PHARMACY ANIBAL Administration Sodium Chloride 10 ml 01/28/24 15:54 01/28/24 15:58 Sodium Chloride 0.9% 10ml Syr (Rad Only) IV 02/27/24 15:53 10 ml NEEDED PRN Administration Maintain IV Site Sodium Chloride 3 ml 01/28/24 16:14 Sodium Chloride 3% 15ml Neb IH 02/27/24 16:13 ONCE PRN INDUCE SPUTUM COLLECTION Discontinued Medications Generic Name Dose Route Start Last Admin Trade Name Jimmyq PRN Reason Stop Dose Admin Droperidol 5 mg 01/28/24 19:26 01/28/24 19:30 Droperidol 5mg/2ml Vial IV 01/28/24 19:27 5 mg ONCE ONE Administration Etomidate 20 mg 01/28/24 15:22 01/28/24 15:13 Etomidate 40mg/20ml Vial IV 01/28/24 15:23 20 mg ONCE ONE Administration Cefepime HCl 2 gm/ Sodium 100 mls @ 200 mls/hr 01/28/24 15:18 01/28/24 17:02 Chloride IV 01/28/24 15:47 200 mls/hr ONCE ONE Administration Propofol 100 mls @ 3.266 mls/hr 01/28/24 15:23 01/28/24 16:54 Diprivan 10mg/Ml 100ml Bottle IV 02/27/24 15:22 Not Given .Q24H ANIBAL Protocol 10 MCG/KG/MIN Vancomycin HCl 1,000 mg/ 250 mls @ 125 mls/hr 01/28/24 15:30 01/28/24 17:14 Sodium Chloride IV 01/28/24 17:29 125 mls/hr ONCE ONE Administration Dextrose/Lactated Ringer's 1,000 mls @ 9,999 mls/hr 01/28/24 15:30 01/28/24 15:28 Dextrose 5% In Lactated Ringer's 1000ml IV 02/27/24 15:29 9,999 mls/hr .Q6M ANIBAL Administration Magnesium Sulfate 4 gm in 50 mls @ 150 mls/hr 01/28/24 16:40 01/28/24 17:32 Magnesium Sulfate 4gm/50ml Premix IV 01/28/24 16:59 150 mls/hr ONCE ONE Administration Iopamidol 160 ml 01/28/24 15:54 01/28/24 15:58 Iopamidol-370 (76%);100ml Bottle IV 01/28/24 15:55 160 ml ONCE ONE Administration Rocuronium [place] 60 mg 01/28/24 15:18 01/28/24 15:14 Rocuronium [place] 50mg/5ml Vial IV 01/28/24 15:19 60 mg ONCE ONE Administration Sodium Chloride 100 ml 01/28/24 15:54 01/28/24 15:58 0.9 % Sodium Chloride 50 Ml Vial IV 01/28/24 15:55 100 ml ONCE ONE Administration ORDERS Category Date Time Status CT angio abdomen pelvis Stat Cat Scan 01/28/24 15:[address] angio head Stat Cat Scan 01/28/24 15:[address] angio neck Stat Cat Scan 01/28/24 15:[address] cervical spine wo con Stat Cat Scan 01/28/24 15:[address] head/brain wo con Stat Cat Scan 01/28/24 15:19 Completed CTA Chest [CT angio chest - dissection] Stat Cat Scan 01/28/24 15:19 Completed Consult Pedigree Researcher [CONS] Routine Cons 01/28/24 18:15 Active CXR --portable [XR chest portable] Stat Exams 01/28/24 20:04 Taken POCUS Point of Care (ER Only) Stat Exams 01/28/24 17:27 Completed XR chest portable Stat Exams 01/28/24 15:20 Completed Acetaminophen Stat Lab 01/28/24 15:33 Completed Ammonia Stat Lab 01/28/24 18:36 Completed Body Fluid: Cell Count w/ Diff Stat Lab 01/28/24 17:55 Completed Complete Blood Count Auto Diff Stat Lab 01/28/24 15:33 Completed Comprehensive Metabolic Panel Stat Lab 01/28/24 15:33 Completed Drug Screen,Urine Stat Lab 01/28/24 15:33 Completed Ethanol [Ethyl Alcohol] Stat Lab 01/28/24 15:33 Completed Hemoglobin A1C Stat Lab 01/28/24 15:33 Received Lactic Acid Follow Up (RFLX 1) Stat Lab 01/28/24 20:31 Completed Lactic Acid Stat Lab 01/28/24 15:33 Completed Magnesium Stat Lab 01/28/24 15:33 Completed NT Pro Brain Natriuretic Pep. Stat Lab 01/28/24 15:33 Completed PT INR [Prothrombin Time INR] Stat Lab 01/28/24 15:33 Completed PTT [Activated Partial Thrombo Time] Stat Lab 01/28/24 15:33 Completed Salicylate Stat Lab 01/28/24 15:33 Completed T4 (Thyroxine) Stat Lab 01/28/24 15:33 Completed TSH [Thyroid Stimulating Hormone] Stat Lab 01/28/24 15:33 Completed Troponin I Q3H Lab 01/28/24 18:32 Completed Troponin I Q3H Lab 01/28/24 21:30 Ordered Troponin I Stat Lab 01/28/24 15:33 Completed Urinalysis and Microscopic Stat Lab 01/28/24 15:33 Completed Blood Culture Stat Micro 01/28/24 16:34 Received Body Fluid Cult & Gram Stain Stat Micro 01/28/24 17:55 Results Sputum Culture & Gram Stain Stat Micro 01/28/24 16:10 Results ABG [Arterial Blood Gas] Stat RT 01/28/24 16:48 Completed Insert, Endotracheal Tube Stat RT 01/28/24 16:26 Ordered Venous Blood Gas Stat RT 01/28/24 15:41 Completed
[2024-01-28] MEDS: LACTULOSE 20GM/30ML UDC 10 GM NG-TUBE (21:01)
--- NOTE | 2024-02-05 15:46 | PEERSUPPORT ---
Peer Support Note Patient Information Patient Information: 02/04/2024 Reason: Ps follow up Patient not available on phone number in chart. Ps left message with female who answered the phone friend to have her return the call. ?
== END 2024-01-28 21:46 | disposition short-term general hospital (02) ==
PROVIDERS: Emergency Provider Emergency Medicine
DX: J96.01 Acute respiratory failure with hypoxia (principal); D73.5 Infarction of spleen; E72.20 Disorder of urea cycle metabolism, unspecified; G93.41 Metabolic encephalopathy; R41.82 Altered mental status, unspecified; R46.4 Slowness and poor responsiveness
CPT/HCPCS: 51702; 70450; 70496; 70498; 71045; 71275; 72125; 74174; 80053; 80307; 80320; 80329; 81001; 82140; 82803; 83036; 83605; 83735; 83880; 84436; 84443; 84484; 85025; 85610; 85730; 87040; 87070; 87205; 89051; 93005; 96361; 96374; 96375; 99291; 99292; G0480; J1790; J2704; J3370; J7050; Q9967